=== PATIENT | male | born 2000 | race Caucasian/White ===

== ENCOUNTER 2021-09-11 22:04 | Emergency (ER) | payer SELFPAY ==
[~2021-09-11] VITALS: Ht 190.5 cm; Wt 145.5 kg
--- NOTE | 2021-09-11 22:07 | PHYS DOC ---
General Adult HPI: HPI: ".. I stepped on sheet rock nail.. it went through my shoe.. yesterday.. but it is still sore...". " My uncle said I should up date my tetanus..." Patient is a 21 year old male who presents with above hx and complaints with puncture in Rt. foot. Puncture wound in midfoot. Appears very very shallow. Area cleaned with Betadine. Bactroban ointment applied. Patient's tetanus is due. No recent travel. No specific ill contacts. No history immunosuppression. Patient does vape. Patient denies any recent travel. Review of Systems: Review of Systems: Constitutional: Denies fever or chills Eyes: Denies change in visual acuity HENT: Denies nasal congestion or sore throat Respiratory: Denies cough or shortness of breath Cardiovascular: Denies chest pain or edema GI: Denies abdominal pain, nausea, vomiting, bloody stools or diarrhea : Denies dysuria Musculoskeletal: Denies back pain or joint pain Integument: Denies rash. Complains of puncture wound right foot Neurologic: Denies headache, focal weakness or sensory changes Endocrine: Denies polyuria or polydipsia Lymphatic: Denies swollen glands Psychiatric: Denies depression or anxiety Family History: Family History: Noncontributory Current Medications: Current Meds: See nursing for home meds Allergies: Allergies: No known drug allergies Physical Exam: PE: Constitutional: Well developed, well nourished, no acute distress, non-toxic appearance. [] HENT: Normocephalic, atraumatic, bilateral external ears normal, oropharynx moist, no oral exudates, nose normal. [] Eyes: PERRLA, EOMI, conjunctiva normal, no discharge. [] Neck: Normal range of motion, no tenderness, supple, no stridor. [] Cardiovascular:Heart rate regular rhythm, no murmur [] Lungs & Thorax: Bilateral breath sounds clear to auscultation []. Few scattered wheezes Abdomen: Bowel sounds normal, soft, no tenderness, no masses, no pulsatile masses. Obese Skin: Warm, dry, no erythema, no rash. [] Puncture wound right foot Back: No tenderness, no CVA tenderness. [] Extremities: No tenderness, no cyanosis, no clubbing, ROM intact, no edema. [] Neurologic: Alert and oriented X 3, normal motor function, normal sensory function, no focal deficits noted. [] Psychologic: Affect anxious judgement normal, mood normal. [] EKG: EKG: [] Radiology/Procedures: Radiology/Procedures: Declined [] Heart Score: C/O Chest Pain: N/A Risk Factors: Risk Factors: DM, Current or recent (<one month) smoker, HTN, HLP, family history of CAD, obesity. Risk Scores: Score 0 - 3: 2.5% MACE over next 6 weeks - Discharge Home Score 4 - 6: 20.3% MACE over next 6 weeks - Admit for Clinical Observation Score 7 - 10: 72.7% MACE over next 6 weeks - Early Invasive Strategies Course & Med Decision Making: Course & Med Decision Making Pertinent Labs and Imaging studies reviewed. (See chart for details) Patient to soak foot and very warm salt water or Epson salts 4 times a day. Then massage with Polysporin. Patient take Bactrim twice a day. Patient wear only white socks until healed. Monitor for infection. Follow-up primary care. Return if any concerns. Impression: 1. Puncture wound right foot sheet rock screw [] Dragon Disclaimer: Dragon Disclaimer: This electronic medical record was generated, in whole or in part, using a voice recognition dictation system. Departure Departure: Scripts Sulfamethoxazole/Trimethoprim (BACTRIM DS TABLET) 1 Each Tablet 1 TAB PO BID for puncture wound for 7 Days, #14 TAB 0 Refills Prov: CYNDI CORTES MD 09/11/21 [place] Disclaimer This chart was dictated in whole or in part using Voice Recognition software in a busy, high-work load, and often noisy Emergency Department environment. It may contain unintended and wholly unrecognized errors or omissions. CYNDI CORTES MD Sep 11, 2021 22:07
[2021-09-11 22:20] VITALS: BP 147/65
[2021-09-11] MEDS ORDERED: SULF1TAB24 PO (22:26)
[2021-09-11] MEDS ORDERED: SMZ/TMP 800/160MG TABLET. PO ONE ×2 (22:30→22:31)
[2021-09-11] MEDS ORDERED: DIPHTH,PERTUSS(ACELL),TET TOX 0.5 ML DISP.SYRIN. VAX IM ONE (22:30)
== END 2021-09-11 22:47 | disposition home or self-care (01) ==
LOC: ER 22:04
DX: S91.331A Puncture wound without foreign body, right foot, initial encounter (principal); W45.0XXA Nail entering through skin, initial encounter; Y93.89 Activity, other specified; Y92.89 Other specified places as the place of occurrence of the external cause; Y99.8 Other external cause status
CPT/HCPCS: 90471; 90715; 99283